=== PATIENT | female | born 1995 | race American Indian/Alaskan Native ===

== ENCOUNTER 2021-10-08 12:02 | Emergency (ER) | payer OTHER ==
[2021-10-08] MEDS ORDERED: diphenhydrAMINE 50 MG/ML VIAL IV ONE (12:36)
[2021-10-08] MEDS ORDERED: SODIUM CHLORIDE 0.9% 1000 ML 1,000 ML IV ONE ×2 (12:36→14:52)
[2021-10-08] MEDS ORDERED: MORPHINE 4 MG/1 ML INJ IV ONE ×2 (12:37→15:20)
[2021-10-08] MEDS ORDERED: METOCLOPRAMIDE 10 MG/2 ML INJ IV ONE (12:37)
[2021-10-08 13:46] LABS: Alanine Aminotransferase 13 units/L (7-56); Albumin 4.6 g/dL (3.9-5); Blood Urea Nitrogen 11 mg/dL (7-17); Calcium 10.4 mg/dL (8.4-10.2); Hemolysis Index 12
[2021-10-08 13:49] LABS: Bilirubin,Urine NEG (Negative); Blood,Urine NEG (Negative); Color,Urine Yellow (Yellow); Mucus,Urine 3+ /HPF; Urobilinogen,Urine < 2.0 mg/dL (<2.0)
[2021-10-08 13:49] LABS: BUN/Creatinine Ratio 16
[2021-10-08 13:55] LABS: Protein,Urine >500 mg/dL (Negative)
[2021-10-08 14:05] LABS: Hematocrit 44.2 % (30.3-42.9); Hemoglobin 14.6 gm/dl (10.1-14.3); Mean Corpuscular HGB Conc 33 % (30-34); Mean Corpuscular Volume 93 fl (79-97); Platelet Count 293 K/mm3 (140-440); Red Blood Count 4.77 M/mm3 (3.65-5.03); Red Cell Distribution Width 13.9 % (13.2-15.2)
[2021-10-08] MEDS ORDERED: ONDANSETRON 4 MG/2 ML INJ IV ONE (14:30)
[2021-10-08] MEDS ORDERED: PROCHLORPERAZINE EDISYLATE 10 MG/2 ML VIAL IV ONE (15:20)
[2021-10-08 17:07] LABS: Blood Urea Nitrogen 9 mg/dL (7-17); Calcium 10.1 mg/dL (8.4-10.2); Hemolysis Index 3
[2021-10-08 17:08] LABS: BUN/Creatinine Ratio 15
--- NOTE | 2021-10-08 17:15 | Emergency Department Report ---
ED Abdominal Pain HPI - General Chief Complaint: Abdominal Pain Stated Complaint: DIABETIC GASTOPERISIS Time Seen by Provider: 10/08/21 12:31 Source: patient Mode of arrival: Ambulatory Limitations: No Limitations - History of Present Illness Initial Comments: 25 yo black female with a pmh of DM and gastroparesis presents to ed for evaluation of 3 day history of abdominal pain, neuropathy, and n/v. She states that pain has been persistent and getting worse. MD Complaint: abdominal pain -: Gradual, days(s) (3) Location: diffuse Radiation: none Migration to: no migration Severity scale (0 -10): 9 Quality: cramping Consistency: constant Associated Symptoms: nausea, vomiting. denies: diarrhea, fever, chills, constipation, dysuria, hematemesis, hematochezia, melena, hematuria, anorexia, syncope - Related Data LMP (females 10-50): last week Previous Rx's Medication Instructions Recorded Last Taken Type Amoxicillin [Amoxicillin TAB] 875 mg PO BID 10 Days #20 tablet 05/12/18 Unknown Rx Insulin Aspart Prot/Aspart(Nf) 20 units SQ BID #2 vial 05/12/18 Unknown Rx [Novolog Mix 70/30] Insulin Regular, Human [Novolin R] 1 units SQ TID PRN #1 vial 05/12/18 Unknown Rx Ondansetron [Zofran Odt] 4 mg PO Q8HR PRN #12 tab.rapdis 10/08/21 Unknown Rx Allergies Allergy/AdvReac Type Severity Reaction Status Date / Time No Known Allergies Allergy Verified 10/08/21 12:09 ED Review of Systems ROS: Stated complaint: DIABETIC GASTOPERISIS Other details as noted in HPI Comment: All other systems reviewed and negative Constitutional: denies: chills, fever ENT: denies: ear pain, throat pain, dental pain, congestion Respiratory: denies: cough, shortness of breath, SOB with exertion, SOB at rest, stridor, wheezing Cardiovascular: denies: chest pain, palpitations, dyspnea on exertion, orthopnea, edema, syncope, paroxysmal nocturnal dyspnea Gastrointestinal: abdominal pain, nausea, vomiting. denies: diarrhea, hemat emesis, melena, hematochezia Genitourinary: denies: urgency, dysuria, frequency, hematuria, discharge Skin: denies: rash, lesions Neurological: denies: headache, weakness, numbness ED Past Medical Hx - Past Medical History Hx Diabetes: Yes Additional medical history: Neuropathy - Social History Smoking Status: Never Smoker Substance Use Type: None - Medications Home Medications: Home Medications Medication Instructions Recorded Confirmed Last Taken Type Amoxicillin [Amoxicillin TAB] 875 mg PO BID 10 Days #20 tablet 05/12/18 10/08/21 Unknown Rx Insulin Aspart Prot/Aspart(Nf) 20 units SQ BID #2 vial 05/12/18 10/08/21 Unknown Rx [Novolog Mix 70/30] Insulin Regular, Human [Novolin R] 1 units SQ TID PRN #1 vial 05/12/18 10/08/21 Unknown Rx Ondansetron [Zofran Odt] 4 mg PO Q8HR PRN #12 tab.rapdis 10/08/21 Unknown Rx ED Physical Exam - General Limitations: No Limitations General appearance: alert, in no apparent distress - Head Head exam: Present: atraumatic, normocephalic - Eye Eye exam: Present: normal appearance. Absent: conjunctival injection - Neck Neck exam: Present: normal inspection. Absent: tenderness, meningismus, full ROM, lymphadenopathy - Respiratory Respiratory exam: Present: normal lung sounds bilaterally. Absent: respiratory distress, wheezes, rales, rhonchi, stridor, chest wall tenderness - Cardiovascular Cardiovascular Exam: Present: tachycardia, normal heart sounds - GI/Abdominal GI/Abdominal exam: Present: soft, normal bowel sounds. Absent: distended, tenderness, guarding, rebound, rigid - Extremities Exam Extremities exam: Present: normal inspection, full ROM, normal capillary refill. Absent: tenderness, pedal edema, joint swelling, calf tenderness - Back Exam Back exam: Present: normal inspection, full ROM. Absent: tenderness, CVA tenderness (R), CVA tenderness (L), vertebral tenderness - Neurological Exam Neurological exam: Present: alert, oriented X3 - Psychiatric Psychiatric exam: Present: normal affect, normal mood - Skin Skin exam: Present: warm, dry, intact, normal color ED Course Vital Signs 10/08/21 10/08/21 10/08/21 12:08 13:03 15:44 Temperature 98.5 F 98.5 F 98.5 F Pulse Rate 125 H 77 77 Respiratory 17 20 18 Rate Blood Pressure 149/94 Blood Pressure 118/69 124/75 [Left] O2 Sat by Pulse 97 98 99 Oximetry 10/08/21 17:38 Temperature 98.1 F Pulse Rate 80 Respiratory 18 Rate Blood Pressure Blood Pressure 116/68 [Left] O2 Sat by Pulse 99 Oximetry - Reevaluation(s) Reevaluation #1: 10/08/21 17:15 Nausea vomiting and abdominal pain mostly resolved. Patient now resting comfortably. BMP improved. ED Medical Decision Making - Lab Data Result diagrams: 10/08/21 12:50 10/08/21 16:24 - Medical Decision Making 25 yo black female with a pmh of DM and gastroparesis presents to ed for evaluation of 3 day history of abdominal pain, neuropathy, and n/v. She states that pain has been persistent and getting worse. Nausea, vomiting and abdominal pain resolved after medication. BMP and BG improved after 2 liters of NS. Patient not in DKA and will be discharged home with zofran to use as directed. She is advised to follow up with her pcp or [facility] for further evaluation and management and return to the ED for any concerning symptoms. She verbalized understanding of and agreement with plan of care. Critical care attestation.: If time is entered above; I have spent that time in minutes in the direct care of this critically ill patient, excluding procedure time. ED Disposition Clinical Impression: Nausea & vomiting Qualifiers: Vomiting type: unspecified Qualified Code(s): R11.2 - Nausea with vomiting, unspecified Abdominal pain Qualifiers: Abdominal location: generalized Qualified Code(s): R10.84 - Generalized abdominal pain Disposition: 01 HOME / SELF CARE / HOMELESS Is pt being admited?: No Does the pt Need Aspirin: No Condition: Stable Instructions: Nausea and Vomiting, Adult, [id number], Abdominal Pain, Adult, [id number], Abdominal Pain (ED) Additional Instructions: Take medication as prescribed. Follow-up with primary care provider if worsening symptoms. Return to the emergency department as needed. Prescriptions: Ondansetron [Zofran Odt] 4 mg PO Q8HR PRN #12 tab.rapdis PRN Reason: Nausea And Vomiting Referrals: DORIS BATES MD [Staff Physician] - 3-5 Days JOSE HARDY MD [Referring] - 3-5 Days Forms: Work/School Release Form(ED) Time of Disposition: 17:15
[2021-10-08 17:38] VITALS: BP 116/68
== END 2021-10-08 17:38 | disposition home or self-care (01) ==
LOC: ED 12:02
DX: R11.2 Nausea with vomiting, unspecified (principal); R10.84 Generalized abdominal pain; E11.42 Type 2 diabetes mellitus with diabetic polyneuropathy; Z79.4 Long term (current) use of insulin; Z79.899 Other long term (current) drug therapy
CPT/HCPCS: 36415; 80048; 80053; 81001; 82805; 82962; 83690; 84703; 85027; 96361; 96374; 96375; 96376; 99284; J0780; J1200; J2270; J2405; J2765; J7030

== ENCOUNTER 2021-10-10 18:28 | Emergency (ER) | payer OTHER ==
[2021-10-10 19:39] VITALS: BP 123/78
[2021-10-10 20:28] LABS: Basophils # (Auto) 0.1 K/mm3 (0.0-0.1); Basophils % (Auto) 0.8 % (0.0-1.8); Eosinophils # (Auto) 0.1 K/mm3 (0.0-0.4); Eosinophils % (Auto) 0.8 % (0.0-4.3); Hematocrit 43.7 % (30.3-42.9); Hemoglobin 14.5 gm/dl (10.1-14.3); Lymphocytes % (Auto) 25.8 % (13.4-35.0); Mean Corpuscular HGB Conc 33 % (30-34); Mean Corpuscular Volume 92 fl (79-97); Monocytes # (Auto) 0.5 K/mm3 (0.0-0.8); Monocytes % (Auto) 6.9 % (0.0-7.3); Platelet Count 321 K/mm3 (140-440); Red Blood Count 4.74 M/mm3 (3.65-5.03); Red Cell Distribution Width 13.7 % (13.2-15.2)
[2021-10-10 20:45] LABS: Alanine Aminotransferase 11 units/L (7-56); Albumin 4.8 g/dL (3.9-5); Blood Urea Nitrogen 6 mg/dL (7-17); Calcium 10.1 mg/dL (8.4-10.2); Hemolysis Index 10
[2021-10-10 20:46] LABS: BUN/Creatinine Ratio 10
[2021-10-10 23:28] LABS: Bilirubin,Urine NEG (Negative); Blood,Urine NEG (Negative); Color,Urine Yellow (Yellow); Hyaline Casts,Urine 1 /LPF; Mucus,Urine FEW /HPF; Protein,Urine <15 mg/dL mg/dL (Negative); Urobilinogen,Urine < 2.0 mg/dL (<2.0)
== END 2021-10-10 22:32 | disposition left against medical advice (07) ==
LOC: ED 18:28
DX: R10.9 Unspecified abdominal pain (principal); Z53.21 Procedure and treatment not carried out due to patient leaving prior to being seen by health care provider
CPT/HCPCS: 36415; 80053; 81001; 84703; 85025